=== PATIENT | female | born 1970 | race Caucasian/White ===

== ENCOUNTER → 2020-03-15 14:16 | Outpatient (CLI) | payer OTHER, SELFPAY ==
[2020-03-17 04:07] LABS: COVID19 Sendout Not Detected (Not Detected)
== END ==
PROVIDERS: Visit Provider Nurse Practitioner
DX: R50.9 Fever, unspecified (principal)
CPT/HCPCS: 87635

== ENCOUNTER 2020-03-28 13:19 | Emergency (ER) | payer OTHER, SELFPAY ==
[2020-03-28 13:25] VITALS: BP 148/88; PULSE 87; RESP 20; TEMP 37.6; O2SAT 97; BMI 30.9
--- NOTE | 2020-03-28 13:29 | ED_ITS ---
HPI - General Adult General Chief complaint: Extremity Injury, Lower Stated complaint: Swelling/Pain In Both Knees, HX Arthritis Time Seen by Provider: 03/28/20 13:24 Source: patient Mode of arrival: Ambulatory Limitations: no limitations History of Present Illness HPI narrative: 49-year-old female here for evaluation of bilateral with right being greater than left knee pain/effusions. Patient states that approximately 1 week ago she was outside building a bicycle wrap with her kids. She stated that she actually went over the wrap on the bike herself. She did not fall. There was no specific injury. The next day she had pain and swelling in her knees. Earlier this week went to an outside facility. She states that she had a x-ray of her knees and was told that there were no fractures. She had an arth rocentesis performed of the right knee which she stated resolved the effusion however since that time it has started to come back and is also more painful. No fevers. No redness. Has been wearing knee braces at home without much improvement. No trauma since the initial event. Related Data Allergies Allergy/AdvReac Type Severity Reaction Status Date / Time Penicillins Allergy Severe Difficulty Verified 03/28/20 13:32 Breathing Review of Systems Constitutional Constitutional: Denies fatigue and Denies fever(s) Cardiovascular Cardiovascular: Denies chest pain and Denies dyspnea Respiratory Respiratory: Denies dyspnea Gastrointestinal Gastrointestinal: Denies abdominal pain Musculoskeletal Musculoskeletal: Reports arthralgias, Denies back pain, Reports arthralgias, Reports joint swelling, Denies myalgias and Denies tingling Integumentary/Breasts Skin/Breast: Denies lesions and Denies rash Neurologic Neurologic: Denies behavioral changes and Denies tingling Psychiatric Psychiatric: Denies behavioral changes Endocrine Endocrine: Denies fatigue Hematologic/Lymphatic Hematologic/Lymphatic: Denies easy bleeding and Denies easy bruising Allergic/Immunologic Allergic/Immunologic: Denies urticaria Patient History Medical History Arthritis (Acute) Social History Smoking Status: Never smoker Exam Initial Vital Signs Initial Vital Signs: Vital Signs Temperature 99.7 F H 03/28/20 13:25 Pulse Rate 87 03/28/20 13:25 Respiratory Rate 20 03/28/20 13:25 Blood Pressure 148/88 H 03/28/20 13:25 Pulse Oximetry 97 03/28/20 13:25 Const General: cooperative, comfortable and well developed Limitations: mental status not altered HENMT Head: normal to inspection and normocephalic Resp Effort & Inspection: normal respiratory effort Cardio Rate: regular rate Pulses: dorsalis pedis present bilaterally Skin Lesions: no lesions Rashes: no rashes Neuro General: patient alert and patient awake Cognition: normal cognition Speech: speech normal Sensory Exam: no sensory deficits noted Extrem General: capillary refill normal Right lower extremity: knee Details: swelling; no tenderness Left lower extremity: knee Details: tenderness and swelling Psych Appearance: grossly normal and well kempt Course Vital Signs Vital signs: Vital Signs - 8 hr 03/28/20 13:25 Temperature 99.7 F H Pulse Rate 87 Respiratory Rate 20 Blood Pressure 148/88 H Pulse Oximetry 97 Medical Decision Making MDM Narrative Medical decision making narrative: Patient with bilateral knee effusions with the right being greater than left. She has been ambulatory. Had a long discussion with her regarding her symptoms we discussed options to include doing a arthrocentesis and the risks benefits of this to include infection and return of the effusion. Also informed her that this would be for a therapeutic purpose not diagnostic purpose. I have low suspicion for gout/infection. Did inform her that potentially she does have a soft tissue injury. Informed her that she should talk with her primary provider about indications for an MRI or physical t herapy. She also discussed that she has had other joint pains. Discussed follow-up. She expressed understanding and agreement. Discharge Plan Departure Patient Disposition: Home Clinical Impression: Arthritis, Bilateral knee effusions Discharge Date/Time: 03/28/20 14:05 Instructions: DI for Osteoarthritis, DI for Knee Effusion Activity Restrictions/Additional Instructions: Recommend that you do contact your primary provider for follow-up in 2 discussed the indications for potential further rheumatologic workup. Recommend that you are using ice and anti-inflammatories. Recommend that you also start on a anti acid medicine like we discussed. Return to the emergency department for any new or worsening symptoms Referrals: Travis Quiroz [Primary Care Provider] -
--- NOTE | 2020-04-05 16:17 | PC.NURSE ---
@1130 Patient called earlier today stating she was unable to get ahold of her PCP ([facility]) for followup appointment regarding an MRI order, which the ED doctor mentioned in his note. I was given her permission to call the clinic and see if they could either make an appointment or order an MRI per the ED doctors note. I talked with Elijah at the clinic who asked us to send records mentioning the need of an MRI. Patient gave me her permission to do this, and I faxed the doctors note to the clinic. Patient was thankful. @1600 I called the patient again to check if she had received a call back from the clinic. Patient stated Elijah from the clinic called her back and informed her that the doctor would be reviewing the doctors notes regarding an MRI. Patient had questions regarding renting a wheelchair until the MRI appt, I told her to check with the local [employer], [employer], and per the RN and provider in the ER we gave her the option of calling in an Rx for a walker if she needed one. Patient will call back if she cant get a wheelchair and decides she needs a walker.
== END 2020-03-28 14:05 | disposition home or self-care (01) ==
PROVIDERS: Emergency Provider Emergency Medicine; PCP Family Medicine
DX: M25.461 Effusion, right knee (principal); M25.462 Effusion, left knee; M19.90 Unspecified osteoarthritis, unspecified site
CPT/HCPCS: 99281

== ENCOUNTER → 2020-04-25 16:03 | Outpatient (CLI) | payer OTHER, SELFPAY ==
--- NOTE | 2020-04-25 16:06 | DI.MRI.S_ITS ---
PROCEDURE: MR KNEE RT WO CON INDICATIONS: BILATERAL KNEE PAIN TECHNIQUE: Noncontrast sagittal PD fast spin echo and T2 fast spin echo with fat saturation, sagittal 3-D FLASH with fat saturation; coronal T1 spin echo and PD fast spin echo with fat saturation, and axial PD fast spin echo with fat saturation through the knee. COMPARISON: [facility], MR, MR KNEE RIGHT WITHOUT CONTRAST, 07/19/2018, 15:42. [facility], CR, XR KNEE ARTHRITIC SERIES BI, 04/18/2020, 8:40. [facility], MR, MR KNEE LT WO CON, 04/25/2020, 16:17. FINDINGS: Image quality: Excellent. Menisci: Medial extrusion of the medial meniscus is present. There is new vague linear vertically oriented high signal intensity traversing the posterior horn medial meniscus, demonstrating superior and inferior articular surface extension common new since the prior examination. Lateral extrusion of the lateral meniscus. Linear oblique and amorphous high signal intensity within the anterior horn lateral meniscus is present, demonstrating superior and inferior articular surface extension, indicating complex tearing. Cruciate ligaments: The anterior and posterior cruciate ligaments appear intact. Medial structures: The medial collateral ligament appears intact. Visualized portions of the pes anserinus tendons appear normal. No abnormal bursal fluid. Lateral structures: The lateral collateral ligament demonstrates moderate T2 signal elevation at the femoral origin. The wilian and short heads of the biceps femoris tendon appear intact. The popliteus tendon appears normal. Iliotibial band appears normal. Anterior structures: The quadriceps and patellar tendons appear intact. Patellar alignment is normal. No femoral trochlear dysplasia or ventral trochlear prominence. No edema in the infrapatellar fat pad. Bones and cartilage: No bone marrow contusions or fractures. There is moderate subchondral degenerative marrow edema within the lateral femoral trochlea inferiorly. There is mild tricompartmental periarticular osteophyte formation. There is moderate articular cartilage loss diffusely overlying the weight-bearing aspects of the medial femoral condyle and medial tibial plateau, increased from the prior examination. There is increased, moderate articular cartilage loss diffusely overlying the weight-bearing aspects of the lateral femoral condyle and lateral tibial plateau. There is a superimposed 8 mm diameter region of superimposed high-grade articular cartilage loss overlying the posterior weight-bearing aspect of the lateral femoral condyle. There is severe articular cartilage loss overlying the lateral patellar facet, lateral patellar apex, and lateral femoral trochlea, as before. There is a focal high-grade articular cartilage fissure overlying the medial patellar facet, measuring roughly 2 mm diameter. Joint space: There is a large knee joint effusion and a trace Hammond's cyst. Multiple intra-articular loose bodies are present. Largest of these is in the posteromedial aspect of the knee joint measuring 5 mm. Normal appearing synovial plicae are incidentally noted. IMPRESSION: 1. Tricompartmental osteoarthritis with associated articular cartilage loss. 2. Knee joint effusion, Hammond's cyst, and intra-articular loose bodies. 3. Partial thickness lateral collateral ligament tear. 4. Medial and lateral meniscal tearing. Dictated by: Chan Ordoñez M.D. on 04/26/2020 at 9:53 Approved by: Chan Ordoñez M.D. on 04/26/2020 at 10:01
--- NOTE | 2020-04-25 16:07 | DI.MRI.S_ITS ---
PROCEDURE: MR KNEE LT WO CON INDICATIONS: BILATERAL KNEE PAIN TECHNIQUE: Noncontrast sagittal PD fast spin echo and T2 fast spin echo with fat saturation, sagittal 3-D FLASH with fat saturation; coronal T1 spin echo and PD fast spin echo with fat saturation, and axial PD fast spin echo with fat saturation through the knee. COMPARISON: [facility] [place], CR, XR KNEE ARTHRITIC SERIES BI, 04/18/2020, 8:40. FINDINGS: Image quality: Excellent. Menisci: Medial extrusion of the medial meniscus is present. There is linear horizontal high T2 signal intensity traversing the posterior horn medial meniscus, demonstrating inferior articular surface extension. There are small parameniscal cysts at the posterior aspect of the posterior horn medial meniscus. Lateral meniscus is intact. Cruciate ligaments: The anterior and posterior cruciate ligaments appear intact. Medial structures: The medial collateral ligament appears intact. Visualized portions of the pes anserinus tendons appear normal. No abnormal bursal fluid. Lateral structures: The lateral collateral ligament, long and short heads of the biceps femoris tendon appear intact. The popliteus tendon appears normal. Iliotibial band appears normal. Anterior structures: The quadriceps and patellar tendons appear intact. Patellar alignment is normal. No femoral trochlear dysplasia or ventral trochlear prominence. No edema in the infrapatellar fat pad. Bones and cartilage: No bone marrow contusions or fractures. Mild degenerative marrow edema within the subchondral aspect of the lateral femoral trochlea. Severe articular cartilage loss overlies the lateral aspect of the lateral femoral trochlea. Severe articular cartilage loss overlies the patellar apex, with mild ill-defined underlying degenerative marrow edema. Moderate articular cartilage loss overlies the weight-bearing aspects of the medial femoral condyle and medial tibial plateau. Joint space: There is a moderate knee joint effusion and a small Hammond's cyst. Multiple intra-articular loose bodies are present, largest of which is in the Hammond's cyst, measuring 7 mm. Small ganglion cyst along the popliteus. Normal appearing synovial plicae are incidentally noted. IMPRESSION: 1. Tricompartmental osteoarthritis with associated articular cartilage loss. 2. Knee joint effusion and Hammond's cyst. Multiple intra-articular loose bodies. 3. Medial meniscal tear. Dictated by: Chan Ordoñez M.D. on 04/26/2020 at 9:39 Approved by: Chan Ordoñez M.D. on 04/26/2020 at 9:48
== END ==
PROVIDERS: PCP Family Medicine; Referring Provider Orthopaedic Surgery; Visit Provider Family Medicine
DX: M25.561 Pain in right knee (principal); M25.562 Pain in left knee; S83.242A Other tear of medial meniscus, current injury, left knee, initial encounter; S83.241A Other tear of medial meniscus, current injury, right knee, initial encounter; S83.281A Other tear of lateral meniscus, current injury, right knee, initial encounter; M17.0 Bilateral primary osteoarthritis of knee; M25.462 Effusion, left knee; M25.461 Effusion, right knee; M71.22 Synovial cyst of popliteal space [Baker], left knee; M71.21 Synovial cyst of popliteal space [Baker], right knee
CPT/HCPCS: 73721

== ENCOUNTER 2023-05-27 12:12 | Day surgery (SDC) | payer OTHER, SELFPAY ==
[2023-05-27 12:30] VITALS: BP 122/82; PULSE 67; RESP 14; TEMP 36.7; O2SAT 96; BMI 28.8
--- NOTE | 2023-05-27 12:46 | P.HP_ITS ---
History of Present Illness History of Present Illness Date Patient Seen: 05/27/23 Time Patient Seen: 12:46 Chief complaint: Colonoscopy Narrative: Crystal is a 52-year-old woman who is here for colonoscopy. It is her first screening colonoscopy. She denies hematochezia or melena. She denies a family history of colon cancer. [facility] Medical History (Updated 05/27/23 @ 12:47 by Maximino Regalado MD) Arthritis Social History Smoking Status: Never smoker Meds Home Medications and Allergies Home Medications Medication Instructions Recorded Confirmed Type sodium,potassium,mag sulfates 17.5 See Rx Instructions PO .COMPLEX 04/27/23 Rx gram-3.13 gram-1.6 gram oral soln #354 mL (Suprep Bowel Prep Kit) Allergies Allergy/AdvReac Type Severity Reaction Status Date / Time Penicillins Allergy Severe Difficulty Verified 03/28/20 13:32 Breathing Exam Const General: healthy appearing and comfortable Assessment & Plan Assessment and plan (1) Colon cancer screening: Status: Acute Plan Crystal is a 52-year-old woman who is here for her first screening colonoscopy. We reviewed the risks and benefits and she would like to proceed.
[2023-05-27] MEDS: LACTATED RINGERS 1,000 ML 42 ML IV (12:52)
--- NOTE | 2023-05-27 13:42 | PM.OP.COLON ---
Operative Date/Time/Diagnoses Date of procedure: 05/27/23 Time of procedure: 13:42 Pre-op diagnosis: Colon cancer screening Post-op diagnosis: same Procedure & Clinicians Study performed: Colonoscopy Same procedure as scheduled: Yes Surgeon: Maximino Regalado Procedure Notes Procedure in detail: Surgeon: Maximino Regalado MD Anesthesia: Nathalie Mondragon CRNA Procedure: The patient was brought to the endoscopy suite, placed in left lateral decubitus position. The patient was connected to monitoring devices. A time-out was performed. Sedation was administered. Once the patient was adequately sedated, a digital rectal exam was performed and was normal. The scope was then inserted and advanced to the cecum where the appendiceal orifice was identified and photographed. The scope was then slowly withdrawn over greater than 6 minutes. The mucosa was thoroughly inspected. No abnormalities were seen. The scope was retroflexed in the rectum. No abnormalities were found. The scope was straightened and removed. The patient was awakened and brought to recovery. Scope withdrawal time: 7 minutes Sedation time: 11 minutes EBL: 0 Findings: Normal colon Post-procedure Recommendations: Colonoscopy in 10 years Disposition: PACU
[2023-05-27 13:44] VITALS: BP 112/73; PULSE 68; RESP 25; TEMP 36.3; O2SAT 95
[2023-05-27 13:46] VITALS: BP 107/73; PULSE 68; RESP 13; O2SAT 97
[2023-05-27 13:47] VITALS: BP 119/75; PULSE 63; RESP 16; O2SAT 96
[2023-05-27 13:51] VITALS: BP 120/81; PULSE 67; RESP 16; O2SAT 98
== END 2023-05-27 14:22 | disposition home or self-care (01) ==
PROVIDERS: PCP Family Medicine; Referring Provider Surgery; Visit Provider Surgery
PROC: 0DJD8ZZ Inspection of Lower Intestinal Tract, Via Natural or Artificial Opening Endoscopic (ICD-10-PCS; CPT 45378; principal; 2023-05-27 13:30)
DX: Z12.11 Encounter for screening for malignant neoplasm of colon (principal)
CPT/HCPCS: 45378